=== PATIENT | female | born 2000 | race Caucasian/White ===

== ENCOUNTER 2021-11-30 20:17 | Emergency (ER) | payer MEDICAID, OTHER ==
[~2021-11-30] VITALS: Ht 157.5 cm; Wt 102.5 kg
[~2021-11-30 20:17] MED LIST: FLUC200T PO
[2021-11-30] MEDS ORDERED: ketorolac trometh inj. 60 MG/2 ML VIAL IM ONE (22:45)
[2021-11-30] MEDS ORDERED: HYDROcodone/acetaminophen 5mg/325mg tablet PO ONE (22:45)
[2021-11-30] MEDS ORDERED: orphenadrine citrate 60mg/2ml inj. IM ONE (22:45)
[2021-11-30] MEDS ORDERED: CYCL-1 PO (23:07)
[2021-11-30] MEDS ORDERED: NAPR-56 PO (23:07)
[2021-11-30 23:58] VITALS: BP 115/72
== END 2021-12-01 00:01 | disposition home or self-care (01) ==
LOC: ER 20:18
DX: S46.812A Strain of other muscles, fascia and tendons at shoulder and upper arm level, left arm, initial encounter (principal); M62.838 Other muscle spasm; M25.512 Pain in left shoulder; Z72.89 Other problems related to lifestyle; Z88.1 Allergy status to other antibiotic agents; Z79.2 Long term (current) use of antibiotics; Z79.899 Other long term (current) drug therapy; W19.XXXA Unspecified fall, initial encounter; Y93.89 Activity, other specified; Y92.89 Other specified places as the place of occurrence of the external cause; Y99.8 Other external cause status
CPT/HCPCS: 73030; 96372; 99284; J1885; J2360

== ENCOUNTER 2022-08-07 11:12 | Emergency (ER) | payer MEDICAID, OTHER ==
[~2022-08-07] VITALS: Ht 157.5 cm; Wt 100.0 kg
[~2022-08-07 11:12] MED LIST changes: +CYCL-1 PO
[2022-08-07 11:13] VITALS: BP 129/92
[2022-08-07] MEDS ORDERED: levoFLOXACIN-Levaquin 500mg/D5 100 ML IV ONE (11:45)
[2022-08-07] MEDS ORDERED: ketorolac trometh. 30mg/ml inj. IV ONE (11:45)
[2022-08-07] MEDS ORDERED: HYDROcodone/acetaminophen 5mg/325mg tablet PO ONE (11:45)
[2022-08-07 12:10] LABS: BASOPHILS % (AUTO) 0.3 % (0-1); EOSINOPHILS # (AUTO) 0.1 X10'3 (0-0.9); EOSINOPHILS % (AUTO) 0.6 % (0-6); HEMATOCRIT 36.2 % (35.0-45.0); HEMOGLOBIN 12.1 g/dl (12.0-16.0); LYMPHOCYTES # (AUTO) 3.4 X10'3 (1.1-4.8); LYMPHOCYTES % (AUTO) 27.4 % (21-51); MEAN CORPUSCULAR HGB CONC 33.3 g/dL (33.0-36.5); MEAN CORPUSCULAR VOLUME 87.1 FL (78-98); MEAN PLATELET VOLUME 6.8 FL (7.4-10.4); MONOCYTES % (AUTO) 8.5 % (2-12); NEUTROPHILS # (AUTO) 7.8 X10'3 (1.8-7.7); NEUTROPHILS % (AUTO) 63.2 % (42-75); PLATELET COUNT 464 X10'3 (140-440); RED BLOOD COUNT 4.16 X10'6 (4.20-5.60); RED CELL DISTRIBUTION WIDTH 14.1 % (11.5-14.5); WHITE BLOOD COUNT 12.3 X10'3 (4.5-11.0)
[2022-08-07] MEDS ORDERED: NAPR-56 PO ×2 (12:37→16:12)
[2022-08-07] MEDS ORDERED: LEVO-65 PO ×2 (12:37→16:12)
[2022-08-07] MEDS ORDERED: HYDR-3965 PO ×2 (12:37→16:12)
[2022-08-07 13:14] LABS: ALANINE AMINOTRANSFERASE 51 U/L (12-78); ALBUMIN 3.2 G/DL (3.4-5.0); ALBUMIN/GLOBULIN RATIO 0.8 (1.1-1.5); ALKALINE PHOSPHATASE 70 IU/L (46-116); ANION GAP 7 (8-16); ASPARTATE AMINO TRANSFERASE 22 U/L (10-37); BILIRUBIN,TOTAL 0.1 MG/DL (0.1-1.0); BLOOD UREA NITROGEN 7 MG/DL (7-18); BUN/CREATININE RATIO 14.6 (6.6-38.0); CHLORIDE 104 MMOL/L (99-107); CREATININE 0.48 MG/DL (0.40-0.90); GLUCOSE 86 MG/DL (70-104); POTASSIUM 3.9 MMOL/L (3.5-5.1); SODIUM 141 MMOL/L (135-145); TOTAL CARBON DIOXIDE 29.6 MMOL/L (24-32); TOTAL PROTEIN 7.3 G/DL (6.4-8.2); eGFR > 90 ML/MIN
== END 2022-08-07 13:15 | disposition home or self-care (01) ==
LOC: ER 11:12
DX: L03.211 Cellulitis of face (principal); H92.03 Otalgia, bilateral; Z72.89 Other problems related to lifestyle; Z88.1 Allergy status to other antibiotic agents; Z88.6 Allergy status to analgesic agent; Z79.2 Long term (current) use of antibiotics; Z79.899 Other long term (current) drug therapy
CPT/HCPCS: 36415; 70486; 80053; 84145; 85025; 85651; 86140; 96365; 96375; 99284; J1885; J1956

== ENCOUNTER 2023-03-28 19:25 | Emergency (ER) | payer OTHER, MEDICAID ==
[~2023-03-28] VITALS: Ht 157.5 cm; Wt 79.8 kg
[~2023-03-28 19:25] MED LIST changes: +HYDR-3965 PO; +LEVO-65 PO; +NAPR-56 PO
[2023-03-28 19:32] VITALS: BP 124/94
[2023-03-28] MEDS ORDERED: ketorolac trometh. 30mg/ml inj. IM ONE (19:50)
[2023-03-28] MEDS ORDERED: mupirocin 2% ointment 22GM TP STA (19:51)
== END 2023-03-28 20:10 | disposition home or self-care (01) ==
LOC: ER 19:26
DX: T23.251A Burn of second degree of right palm, initial encounter (principal); T23.261A Burn of second degree of back of right hand, initial encounter; Z88.1 Allergy status to other antibiotic agents; Z88.5 Allergy status to narcotic agent; X10.1XXA Contact with hot food, initial encounter; Y93.89 Activity, other specified; Y92.89 Other specified places as the place of occurrence of the external cause; Y99.8 Other external cause status
CPT/HCPCS: 16000; 96372; 99283; J1885; A6449

== ENCOUNTER 2023-04-10 14:27 | Emergency (ER) | payer MEDICAID, OTHER ==
[~2023-04-10] VITALS: Ht 157.5 cm; Wt 90.9 kg
[2023-04-10 14:43] LABS: BASOPHILS # (AUTO) 0.1 X10'3 (0-0.2); EOSINOPHILS # (AUTO) 0.1 X10'3 (0-0.9); EOSINOPHILS % (AUTO) 0.7 % (0-6); HEMOGLOBIN 12.6 g/dl (12.0-16.0); LYMPHOCYTES # (AUTO) 3.4 X10'3 (1.1-4.8)
[2023-04-10 14:45] LABS: BASOPHILS % (AUTO) 0.5 % (0-1); HEMATOCRIT 37.3 % (35.0-45.0); LYMPHOCYTES % (AUTO) 32.1 % (21-51); MEAN CORPUSCULAR HEMOGLOBIN 30.1 PG (27.0-31.0); MEAN CORPUSCULAR HGB CONC 33.8 g/dL (33.0-36.5); MONOCYTES # (AUTO) 0.7 X10'3 (0-0.9); MONOCYTES % (AUTO) 6.3 % (2-12); NEUTROPHILS # (AUTO) 6.4 X10'3 (1.8-7.7); NEUTROPHILS % (AUTO) 60.4 % (42-75); PLATELET COUNT 435 X10'3 (140-440); RED BLOOD COUNT 4.19 X10'6 (4.20-5.60); RED CELL DISTRIBUTION WIDTH 14.7 % (11.5-14.5); WHITE BLOOD COUNT 10.7 X10'3 (4.5-11.0)
[2023-04-10 15:01] LABS: APTT 33 SECONDS (22-32)
[2023-04-10 15:05] LABS: ALANINE AMINOTRANSFERASE 25 U/L (12-78); ALBUMIN 3.4 G/DL (3.4-5.0); ALBUMIN/GLOBULIN RATIO 0.9 (1.1-1.5); ALKALINE PHOSPHATASE 83 IU/L (46-116); ANION GAP 8 (8-16); ASPARTATE AMINO TRANSFERASE 19 U/L (10-37); BILIRUBIN,TOTAL 0.3 MG/DL (0.1-1.0); BLOOD UREA NITROGEN 8 MG/DL (7-18); BUN/CREATININE RATIO 15.1 (10.0-20.0); CHLORIDE 104 MMOL/L (99-107); CREATININE 0.53 MG/DL (0.40-0.90); GLUCOSE 97 MG/DL (70-104); POTASSIUM 4.2 MMOL/L (3.5-5.1); SODIUM 138 MMOL/L (135-145); TOTAL CARBON DIOXIDE 26.4 MMOL/L (24-32); TOTAL PROTEIN 7.1 G/DL (6.4-8.2); eGFR > 90 ML/MIN
[2023-04-10 15:14] LABS: MAGNESIUM 1.9 MG/DL (1.5-2.4)
[2023-04-10 15:21] VITALS: BP 127/85
== END 2023-04-10 22:22 | disposition left against medical advice (07) ==
LOC: ER 14:27
DX: R00.2 Palpitations (principal); Z53.21 Procedure and treatment not carried out due to patient leaving prior to being seen by health care provider
CPT/HCPCS: 36415; 80053; 83735; 83880; 84484; 85025; 85610; 85730; 93005; 99281

== ENCOUNTER 2025-04-01 11:04 | Emergency (ER) | payer MEDICAID, OTHER ==
[~2025-04-01] VITALS: Ht 157.5 cm; Wt 95.5 kg
[2025-04-01 11:12] VITALS: BP 134/100; PULSE 85; RESP 15; TEMP 98.2; O2SAT 98
[2025-04-01] MEDS ORDERED: proCHLORperazine 10 MG/2 ml inj IV STA (12:54)
[2025-04-01] MEDS ORDERED: normal saline 1000ml 1,000 ML IV STA (12:54)
[2025-04-01] MEDS ORDERED: ketorolac trometh 30MG/ML vial 30 MG/ML VIAL IV STA (12:54)
[2025-04-01] MEDS ORDERED: diphenhydrAMINE 50 mg/ml inj IV STA (12:54)
--- NOTE | 2025-04-01 12:56 | Physician Documentation ---
History of Present Illness ~ Chief Complaint: Head Pain Stated Complaint: HEADACHE/VOMITING Time Seen by MD: 12:39 Primary Medical Doctor: NONE HPI Patient is seen today with complaints of acute nausea and vomiting and headache that started just this morning. Patient admits to history of headache but denies ever having had a headache this bad. Patient states she has been taking Tylenol and ibuprofen without any significant relief. Patient does admit to some visual aura as well as sensitivity to light and sound. She has no other concern or complaint at this time. Medication Reconciliation Allergies: Coded Allergies: clindamycin (Verified Allergy, Severe, HIVES, 03/28/23) tramadol (Unverified Allergy, Unknown, 03/28/23) Uncoded Allergies: BEES (Allergy, Unknown, 08/07/22) Scheduled Cyclobenzaprine* (Cyclobenzaprine*), 1 TAB PO Q8H Fluconazole (Diflucan), 1 TAB PO DAILY Levofloxacin (Levofloxacin), 1 TAB PO DAILY Naproxen (Naproxen), 1 TAB PO Q12H Scheduled PRN Hydrocodone Bit/Acetaminophen 5/325 MG (Gracey 5/325 MG), 1 TABLET PO TID PRN for pain Past Medical History Past Medical History: *GI/HEPATOBILIARY* Past Surgical History: no surgical history Alcohol Use: Occasionally Drug Use: none Lives with: Family Lives In: Home Occupation: employed Review of Systems Constitutional: Denies: chills, fever, weakness Eyes: Denies: pain, blurred vision ENT: Denies: ear pain, nose pain, throat pain, mouth pain Respiratory: Denies: cough, shortness of breath Cardiovascular: Denies: chest pain, palpitations Gastrointestinal: Denies: abdominal pain, nausea, vomiting Genitourinary: Denies: burning, dysuria Female Genitalia: Denies: vaginal discharge, pelvic pain Neurological: Denies: headache, dizziness Musculoskeletal: Denies: pain, swelling Integumentary: Denies: rash, lesions Allergic/Immunologic: Denies: hives, itching Hematologic/Lymphatic: Denies: no symptoms reported Psychiatric: Denies: depression, anxiety Physical Exam Vital Signs: Temperature: 98.2, Heart Rate: 85, Respiratory Rate: 15, BP: 134/100, Pulse Oximetry: 98, Weight: 95.450 Oxygen Flow Rate: 0 Physical Exam General: Awake and Alert, no acute distress. HEENT: Conjunctiva pink, Sclera clear, Mucus Membranes moist. Neck: Supple without masses and tenderness. Resp: Unlabored. Lungs clear to auscultation bilaterally. Heart: Regular Rate and rhythm, normal S1 and S2 without murmur, rub or gallop. Abdomen: Soft and non tender no organomegaly Extremities: No cyanosis,clubbing or edema. Skin: Warm and Dry. Progress Results/Orders Results/Orders Orders - KIERSTEN ABEBE PAC Saline Lock (04/01/25 ) Completed Orders - KIERSTEN ABEBE PAC Normal Saline 1000ml (Sodium Chloride 10 (04/01/25 12:54) Prochlorperazine Inj (Compazine Inj) (04/01/25 12:54) Ketorolac Trometh 30mg/Ml Vial (Toradol (04/01/25 12:54) Diphenhydramine Inj (Benadryl Inj.) (04/01/25 12:54) Vital Signs 04/01/25 11:12 Temp 98.2 Pulse 85 Resp 15 B/P (MAP) 134/100 Pulse Ox 98 O2 Flow Rate 0 Medical Decision Making Findings Patient is seen today with complaints of acute nausea and vomiting and headache that started just this morning. Patient admits to history of headache but jaziel es ever having had a headache this bad. Patient states she has been taking Tylenol and ibuprofen without any significant relief. Patient does admit to some visual aura as well as sensitivity to light and sound. She has no other concern or complaint at this time. Compazine 10 mg IV, Toradol 30 mg IV, and Benadryl 50 mg IV was ordered for patient. Patient however left the ED or eloped prior to medications being given. Patient will return to ED with any worsening, concerning or changing symptoms. Differential Dx:Considerations: Include: LINO-Cluster, LINO-Migraine, LINO- Hypertensive, LINO-Muscular contraction, LINO-Post lumbar puncture, Carbon monoxide toxicity, Close head injuyr, CVA, Fever induced, Hemorrhage-Epidural, Hemorrhage-Intracerebral, Hemorrhage-Subarachnoid, Hemorrhage-Subdural, Mass lesion, Meningitis, Post-traumtic, Pseudotumor cerebri, Sinusitis, Temporal arteritis, Trigeminal neuralgia, Other Departure Disposition: HOME / SELF CARE / HOMELESS Impression: Primary Impression: Headache Qualified Codes: R51.9 - Headache, unspecified Condition: Stable Discharge Instructions: Headache Additional Instructions: Compazine 10 mg IV, Toradol 30 mg IV, and Benadryl 50 mg IV was ordered for p atient. Patient however left the ED or eloped prior to medications being given. Patient will return to ED with any worsening, concerning or changing symptoms. Referrals: NO PRIMARY CARE PROVIDER (PCP) Signature Scribe Signature: No scribe Attestation: No scribe KIERSTEN ABEBE PAC April 01, 2025 12:56
== END 2025-04-01 17:09 | disposition left against medical advice (07) ==
LOC: ER 11:04
DX: R51.9 Headache, unspecified (principal); R11.2 Nausea with vomiting, unspecified; Z88.1 Allergy status to other antibiotic agents; Z88.5 Allergy status to narcotic agent; Z79.899 Other long term (current) drug therapy; Z72.89 Other problems related to lifestyle
CPT/HCPCS: 99281